=== PATIENT | female | born 1960 | race Caucasian/White ===

== ENCOUNTER 2019-09-14 07:17 | Emergency (ER) | payer BC ==
[2019-09-14] MEDS ORDERED: Lidocaine 1% (PF) 30 ML VIAL ONE (07:28)
[2019-09-14] MEDS ORDERED: traMADol HCl 50 MG TAB ONE (07:30)
[2019-09-14] MEDS ORDERED: Adacel (T-DAP) 0.5 ML SYRINGE ONE (07:50)
[2019-09-14] MEDS ORDERED: Bacitracin 1 PK ONE (07:54)
== END 2019-09-14 08:37 | disposition home or self-care (01) ==
LOC: NAV ERS 07:17
DX: S61.411A Laceration without foreign body of right hand, initial encounter (principal); E11.9 Type 2 diabetes mellitus without complications; E66.01 Morbid (severe) obesity due to excess calories; F32.9 Major depressive disorder, single episode, unspecified; Z23 Encounter for immunization; Z79.899 Other long term (current) drug therapy; W54.0XXA Bitten by dog, initial encounter
CPT/HCPCS: 12002; 90471; 90715; J2001

== ENCOUNTER 2019-09-25 11:49 | Emergency (ER) | payer BC | END 2019-09-25 15:00 | disposition home or self-care (01) | LOC: NAV ERS 11:49 | DX: T81.41XA Infection following a procedure, superficial incisional surgical site, initial encounter (principal); E11.9 Type 2 diabetes mellitus without complications; F32.9 Major depressive disorder, single episode, unspecified; Z79.899 Other long term (current) drug therapy | CPT/HCPCS: 29125 ==

== ENCOUNTER 2024-06-27 11:18 | Emergency (ER) | payer BC | END 2024-06-27 11:25 | disposition left against medical advice (07) | LOC: NAV ERS 11:18 | DX: Z53.21 Procedure and treatment not carried out due to patient leaving prior to being seen by health care provider (principal) ==